=== PATIENT | female | born 2000 | race Caucasian/White ===

== ENCOUNTER 2021-04-09 12:16 | Outpatient (CLI) | payer OTHER ==
[2021-04-09 12:57] LABS: MICROSCOPIC NOT IND
[2021-04-09 13:09] LABS: ALANINE AMINOTRANSFERASE 21 U/L (12-78); ALBUMIN 3.4 g/dL (3.4-5.0); ANION GAP 4 mmol/L (5-15); CALCIUM 8.7 mg/dL (8.5-10.1); CHLORIDE 106 mmol/L (98-107); CREATININE 0.59 mg/dL (0.55-1.02)
[2021-04-09 13:14] LABS: ALKALINE PHOSPHATASE 51 U/L (45-117); BILIRUBIN,TOTAL 0.5 mg/dL (0.2-1.0); TOTAL PROTEIN 7.2 g/dL (6.4-8.2)
[2021-04-09 13:16] LABS: BASOPHILS % (AUTO) 1 % (0-1); EOSINOPHILS % (AUTO) 2 % (1-7); LYMPHOCYTES % (AUTO) 32 % (22-44); MEAN CORPUSCULAR HEMOGLOBIN 28.9 pg (27.0-34.8); MEAN CORPUSCULAR HGB CONC 33.3 g/dL (32.4-35.8); MEAN PLATELET VOLUME 9.2 fL (7.4-10.4); MONOCYTES % (AUTO) 9 % (2-9); NEUTROPHILS % (AUTO) 56 % (42-75); PLATELET COUNT 309 x10^3/uL (130-400); RED BLOOD COUNT 4.51 x10^6/uL (3.82-5.3)
[2021-04-09] MEDS ORDERED: NORE1TAB26 PO (13:37)
== END 2021-04-09 23:59 | disposition home or self-care (01) ==
LOC: STAR 12:16
PROVIDERS: ATTEND Obstetrics & Gynecology Gynecology
DX: Z01.818 Encounter for other preprocedural examination (principal); R10.2 Pelvic and perineal pain; N80.9 Endometriosis, unspecified
CPT/HCPCS: 36415; 80053; 81003; 84703; 85025

== ENCOUNTER 2021-04-17 08:07 | Day surgery (SDC) | payer OTHER ==
[~2021-04-17] VITALS: Ht 152.4 cm; Wt 77.7 kg
[~2021-04-17 08:07] MED LIST: FENTANYL PF 250 MCG/5ML ONE; MIDAZOLAM 1 MG/ML, 2ML ONE; NORE1TAB26 PO
[2021-04-17 08:30] VITALS: BP 114/75
[2021-04-17] MEDS ORDERED: CHLORHEXIDINE 15 ML UDC PO ONE (08:30)
[2021-04-17] MEDS ORDERED: LACTATED RINGERS 1,000 ML IV SCH (08:30)
[2021-04-17 08:50] LABS: HCG UR SG 1.022 (1.003-1.030)
[2021-04-17] MEDS ORDERED: KETOROLAC 30 MG/1 ML IV PRN (10:00)
[2021-04-17] MEDS ORDERED: LABETALOL 5MG/ML, 20ML IV PRN (10:00)
[2021-04-17] MEDS ORDERED: MEPERIDINE/PF 25MG/0.5ML IVPush PRN (10:00)
[2021-04-17] MEDS ORDERED: DIPHENHYDRAMINE 50 MG/ML, 1ML IVPush PRN (10:00)
[2021-04-17] MEDS ORDERED: ALBUTEROL SULFATE 2.5 MG/3 ML NPPB PRN (10:00)
[2021-04-17] MEDS ORDERED: OXYcodone 5 MG/5 ML ORAL.SOL UDC PO PRN (10:00)
[2021-04-17] MEDS ORDERED: HYDROmorphone 1 MG/ML, 1ML INJ IVPush PRN (10:00)
[2021-04-17] MEDS ORDERED: PROMETHAZINE 25 MG/ML, 1ML IVPush PRN (10:00)
[2021-04-17] MEDS ORDERED: FENTANYL PF 250 MCG/5ML ONE (10:16)
[2021-04-17] MEDS ORDERED: OXYcodone 5 MG/5 ML ORAL.SOL UDC ONE (10:47)
[2021-04-17] MEDS ORDERED: FENTANYL PF 100 MCG/2ML ONE (10:47)
[2021-04-17] MEDS: FENTANYL PF 100 MCG/2ML IV PRN ×2 (10:52→10:59)
== END 2021-04-17 12:10 | disposition home or self-care (01) ==
LOC: OUT 08:07
PROVIDERS: ATTEND Obstetrics & Gynecology Gynecology
DX: N80.3 Endometriosis of pelvic peritoneum (principal); N94.12 Deep dyspareunia; N83.8 Other noninflammatory disorders of ovary, fallopian tube and broad ligament; N73.6 Female pelvic peritoneal adhesions (postinfective); K59.04 Chronic idiopathic constipation; F17.290 Nicotine dependence, other tobacco product, uncomplicated; Z20.822 Contact with and (suspected) exposure to COVID-19; Z79.899 Other long term (current) drug therapy; Z88.5 Allergy status to narcotic agent; Z80.41 Family history of malignant neoplasm of ovary
CPT/HCPCS: 58662; 81025; 87635; 88304; 88305; J2250; J3010; J7120